=== PATIENT | male | born 1985 | race Caucasian/White ===

== ENCOUNTER 2017-06-07 18:10 | Emergency (ER) | payer OTHER ==
[~2017-06-07] VITALS: Wt 122.5 kg
[~2017-06-07 18:10] MED LIST: AUGMENTIN 875875 MG PO; BLOOD PRESSURE; CATAFLAM50 MG PO; CLARITIN10 MG PO; CLEOCIN150 MG PO; CORDROL20 MG PO; FLAGYL500 MG PO; HYDROCODONE BIT1 T11 PO; KLONOPIN1 MG PO; LEVOFLOXACIN500 MG PO; LISINOPRIL-HYDR1 TA1 PO; MEDROL DOSEPAK4 MG PO; NORCO 10-325 T1 EACH PO; PROZAC40 MG PO; WELLBUTRIN XL300 MG PO; ZITHROMAX250 MG PO
[2017-06-07] MEDS ORDERED: ROBITUSSIN DM 105 ML PO (18:40)
[2017-06-07] MEDS ORDERED: PREDNISONE10 MG PO (18:40)
[2017-06-07] MEDS ORDERED: FLONASE ALLERG9.9 ML NAS (18:40)
[2017-06-07] MEDS ORDERED: CLARITIN10 MG PO (18:40)
== END 2017-06-07 19:29 | disposition home or self-care (01) ==
LOC: ED 18:10
DX: B34.9 Viral infection, unspecified (principal); R03.0 Elevated blood-pressure reading, without diagnosis of hypertension; F17.200 Nicotine dependence, unspecified, uncomplicated; F10.10 Alcohol abuse, uncomplicated; Z88.8 Allergy status to other drugs, medicaments and biological substances; Z79.899 Other long term (current) drug therapy

== ENCOUNTER 2020-10-30 17:16 | Emergency (ER) | payer OTHER ==
[~2020-10-30] VITALS: Ht 180.3 cm; Wt 120.2 kg
[~2020-10-30 17:16] MED LIST changes: +FLONASE ALLERG9.9 ML NAS; +PREDNISONE10 MG PO; +ROBITUSSIN DM 105 ML PO
== END 2020-10-30 19:53 | disposition home or self-care (01) ==
LOC: ED 17:16
DX: S61.210A Laceration without foreign body of right index finger without damage to nail, initial encounter (principal); Z79.899 Other long term (current) drug therapy; Z88.8 Allergy status to other drugs, medicaments and biological substances; W26.8XXA Contact with other sharp object(s), not elsewhere classified, initial encounter; Y93.89 Activity, other specified; Y92.89 Other specified places as the place of occurrence of the external cause; Y99.8 Other external cause status

== ENCOUNTER 2021-03-18 18:25 | Emergency (ER) | payer OTHER ==
[~2021-03-18] VITALS: Ht 175.2 cm; Wt 115.7 kg
[2021-03-18] MEDS ORDERED: CETIRIZINE HYDR10 MG PO (18:50)
[2021-03-18] MEDS ORDERED: MIRALAX119 GM PO (18:50)
[2021-03-18] MEDS ORDERED: PRILOSEC10 M2 PO (18:51)
[2021-03-18] MEDS ORDERED: NAPROSYN500 MG PO (21:28)
== END 2021-03-18 21:35 | disposition home or self-care (01) ==
LOC: ED 18:25
DX: S20.211A Contusion of right front wall of thorax, initial encounter (principal); Z88.8 Allergy status to other drugs, medicaments and biological substances; Z79.899 Other long term (current) drug therapy; V43.52XA Car driver injured in collision with other type car in traffic accident, initial encounter; Y93.89 Activity, other specified; Y92.89 Other specified places as the place of occurrence of the external cause; Y99.8 Other external cause status

== ENCOUNTER → 2021-05-04 | Outpatient (CLI) | payer OTHER ==
[~2021-05-04] MED LIST changes: +CETIRIZINE HYDR10 MG PO; +MIRALAX119 GM PO; +NAPROSYN500 MG PO; +PRILOSEC10 M2 PO
== END | disposition home or self-care (01) ==
LOC: COVID19 15:55
PROVIDERS: ATTEND Internal Medicine
DX: Z11.52 Encounter for screening for COVID-19 (principal)

== ENCOUNTER → 2022-08-16 | Outpatient (CLI) | payer OTHER ==
[2022-08-16 19:29] LABS: BASO # 0.1 10*3/uL (0.0-0.1); BASO % 0.7 % (0.0-1.0); EOS # 0.3 10*3/uL (0.0-0.4); EOS % 2.8 % (1.0-4.0); HEMATOCRIT 45.6 % (42.0-52.0); LYMPH # 4.1 10*3/uL (1.3-4.4); LYMPH % 45.9 % (27.0-41.0); MEAN CELL VOLUME 90.3 fl (80.0-94.0); MEAN CORPUSCULAR HGB 31.3 pg (27.0-31.0); MEAN CORPUSCULAR HGB CONC 34.6 g/dl (33.0-37.0); MEAN PLATELET VOLUME 10.2 fl (9.6-12.3); MONO # 0.8 10*3/uL (0.1-1.0); MONO % 8.5 % (3.0-9.0); NEUT # 3.7 10*3/uL (2.3-7.9); NEUT % 41.7 % (47.0-73.0); PLATELET COUNT AUTOMATED 261 10*3/uL (130-400); RED BLOOD COUNT 5.05 10*6/uL (4.50-5.90); RED CELL DISTRI WIDTH 12.9 % (0-14.5); RETICULOCYTE % 1.75 % (0.50-2.50); WHITE BLOOD COUNT 8.9 10*3/uL (4.8-10.8)
[2022-08-16 19:31] LABS: BILIRUBIN Negative (Negative); BLOOD Negative (Negative); CLARITY Clear (Clear); COLOR Yellow (Yellow); GLUCOSE Negative (Negative); KETONE Trace (Negative); LEUKO ESTERASE Negative (Negative); NITRITE Negative (Negative); SPECIFIC GRAVITY 1.025 (1.001-1.030)
[2022-08-16 19:40] LABS: BACTERIA TRACE; RBC 0-2 rbc/hpf (0-2)
[2022-08-16 19:48] LABS: ALKALINE PHOSPHATASE 58 U/L (46-116); BUN 11 mg/dl (9-23); CHLORIDE 101 mmol/L (98-107); CHOLESTEROL 148 mg/dL (<200); GAMMA GLUTAMYL TRANSPEPTIDASE 17 U/L (0-73); LDL CHOLESTEROL 63 mg/dL (9-159); POTASSIUM 3.5 mmol/L (3.4-5.1); SGPT/ALT 34 U/L (10-49); THYROID STIM HORMONE (HS) 1.326 uIU/ml (0.550-4.780); TOTAL PROTEIN 7.5 gm/dL (6.0-8.0); TRIGLYCERIDES 282 mg/dl (<150)
[2022-08-16 19:49] LABS: VITAMIN D, 25-HYDROXY 17.5 ng/mL (30-100)
== END | disposition home or self-care (01) ==
LOC: LAB 18:58
PROVIDERS: ATTEND Family Medicine
DX: R79.89 Other specified abnormal findings of blood chemistry (principal); R53.83 Other fatigue; E78.5 Hyperlipidemia, unspecified; E55.9 Vitamin D deficiency, unspecified

== ENCOUNTER → 2023-05-22 | Outpatient (CLI) | payer OTHER ==
[2023-05-22 17:18] LABS: BASO # 0.1 10*3/uL (0.0-0.1); BASO % 0.8 % (0.0-1.0); EOS # 0.3 10*3/uL (0.0-0.4); EOS % 3.4 % (1.0-4.0); HEMATOCRIT 44.3 % (42.0-52.0); LYMPH # 3.6 10*3/uL (1.3-4.4); LYMPH % 38.9 % (27.0-41.0); MEAN CELL VOLUME 89.9 fl (80.0-94.0); MEAN CORPUSCULAR HGB 31.4 pg (27.0-31.0); MEAN PLATELET VOLUME 10.2 fl (9.6-12.3); MONO # 0.6 10*3/uL (0.1-1.0); MONO % 6.7 % (3.0-9.0); NEUT # 4.6 10*3/uL (2.3-7.9); NEUT % 49.3 % (47.0-73.0); PLATELET COUNT AUTOMATED 229 10*3/uL (130-400); RED BLOOD COUNT 4.93 10*6/uL (4.50-5.90); RED CELL DISTRI WIDTH 12.2 % (0-14.5); WHITE BLOOD COUNT 9.2 10*3/uL (4.8-10.8)
[2023-05-22 17:19] LABS: BILIRUBIN Negative (Negative); BLOOD Negative (Negative); CLARITY Clear (Clear); COLOR Yellow (Yellow); GLUCOSE Negative (Negative); KETONE Trace (Negative); LEUKO ESTERASE Negative (Negative); NITRITE Negative (Negative)
[2023-05-22 17:47] LABS: VITAMIN D, 25-HYDROXY 31.4 ng/mL (30-100)
[2023-05-22 18:26] LABS: ALKALINE PHOSPHATASE 52 U/L (46-116); BUN 11 mg/dl (9-23); CHLORIDE 102 mmol/L (98-107); CHOLESTEROL 151 mg/dL (<200); GAMMA GLUTAMYL TRANSPEPTIDASE 22 U/L (0-73); LDL CHOLESTEROL 41 mg/dL (9-159); POTASSIUM 3.5 mmol/L (3.4-5.1); SGPT/ALT 34 U/L (5-49); T3 UPTAKE 20.8 % (22.4-36.7); THYROXINE (T4) TOTAL 10.5 ug/dl (4.5-10.9); TOTAL PROTEIN 7.3 gm/dL (6.0-8.0); TRIGLYCERIDES 389 mg/dl (<150)
== END | disposition home or self-care (01) ==
LOC: LAB 02:27
PROVIDERS: ATTEND Family Medicine
DX: R79.89 Other specified abnormal findings of blood chemistry (principal); R53.83 Other fatigue; E55.9 Vitamin D deficiency, unspecified

== ENCOUNTER 2023-05-30 23:44 | Emergency (ER) | payer SELFPAY ==
[~2023-05-30] VITALS: Ht 180.3 cm; Wt 115.7 kg
[2023-05-30] MEDS ORDERED: AMOX-CLAV 875-1 EACH PO ×2 (23:53)
[2023-05-31] MEDS ORDERED: AMOX-CLAV 875-1 EACH PO (00:01)
== END 2023-05-31 00:04 | disposition home or self-care (01) ==
LOC: ED 23:44
DX: K04.7 Periapical abscess without sinus (principal); K02.9 Dental caries, unspecified; F41.9 Anxiety disorder, unspecified; I10 Essential (primary) hypertension; Z88.8 Allergy status to other drugs, medicaments and biological substances; Z98.890 Other specified postprocedural states; F17.290 Nicotine dependence, other tobacco product, uncomplicated